=== PATIENT | male | born 1950 | race African-American/Black ===

== ENCOUNTER 2018-08-13 20:30 | Outpatient (CLI) | payer MEDICARE | END 2018-08-13 20:31 | disposition home or self-care (01) | LOC: SLEEPLAB 20:30 | PROVIDERS: ATTEND Family Medicine | DX: G47.33 Obstructive sleep apnea (adult) (pediatric) (principal); R06.83 Snoring; R35.1 Nocturia; I10 Essential (primary) hypertension; I21.9 Acute myocardial infarction, unspecified; G47.00 Insomnia, unspecified; G47.10 Hypersomnia, unspecified; E66.9 Obesity, unspecified; Z68.36 Body mass index [BMI] 36.0-36.9, adult | CPT/HCPCS: 95811 ==

== ENCOUNTER 2018-09-01 09:10 | Outpatient (CLI) | payer MEDICARE ==
--- NOTE | 2018-09-01 10:09 | ULT ---
BILATERAL RENAL ULTRASOUND: HISTORY: History of urinary tract infection. BPH. TECHNIQUE: Multiplanar, fernandez scale, and color Doppler images were obtained in a renal ultrasound. FINDINGS: There are anechoic cysts in the right kidney. The largest measures 5.9 cm in size. This large cyst contains a simple septation without significant thickening. There are 2 cysts in the right kidney. No cysts are seen in the left kidney. Both kidneys are normal in echogenicity without hydronephrosis or shadowing calculi and measure 13.4 and 11.8 cm in length on the right and left, respectively. Limited visualization of the urinary bladder is unremarkable. Both ureteral jets were visualized. IMPRESSION: Right renal cysts. POS: [facility]
== END 2018-09-01 09:11 | disposition home or self-care (01) ==
LOC: BICULT 09:10
PROVIDERS: ATTEND Urology
DX: Z12.5 Encounter for screening for malignant neoplasm of prostate (principal); N40.1 Benign prostatic hyperplasia with lower urinary tract symptoms; N52.9 Male erectile dysfunction, unspecified; N28.9 Disorder of kidney and ureter, unspecified; N28.1 Cyst of kidney, acquired; Z87.440 Personal history of urinary (tract) infections
CPT/HCPCS: 76770

== ENCOUNTER 2018-12-19 09:21 | Outpatient (CLI) | payer MEDICARE ==
--- NOTE | 2018-12-19 11:18 | ULT ---
ABDOMINAL ULTRASOUND: Date: 12/19/18 PROVIDED CLINICAL HISTORY: Abdominal bloating. FINDINGS: Comparison made with the renal ultrasound dated 09/01/18. The visualized abdominal aorta is nonaneurysmal. Visualized IVC appears normal. The pancreas is obscu red. The liver demonstrates no evidence for mass or intrahepatic biliary ductal dilatation. The common sully t is not dilated. Gallbladder demonstrates no stones, wall thickening, or pericholecystic fluid. Right and left kidneys demonstrate no evidence for hydronephrosis or solid mass. Septated right renal cyst is redemonstrated, appearing sonographically similar to the prior study. The spleen is not enlarged and demonstrates no focal abnormality. IMPRESSION: No evidence for an acute process. POS: [facility]
== END 2018-12-19 09:22 | disposition home or self-care (01) ==
LOC: ULT 09:21
PROVIDERS: ATTEND Family Medicine
DX: R14.0 Abdominal distension (gaseous) (principal)
CPT/HCPCS: 76700

== ENCOUNTER 2020-08-03 13:04 | Observation (INO) | payer MEDICARE ==
[2020-08-03 14:12] LABS: #Eosinphils 0.1 thou/uL (0.0-0.7); #Lymphocytes 1.3 thou/uL (1.20-3.40); #Monocytes 0.5 thou/uL (0.11-0.59); #Neutrophils 4.3 thou/uL (1.40-6.50); %Basophils 0.7 % (0.0-1.0); %Eosinophils 1.1 % (0.0-10.0); %Lymphocytes 21.4 % (21.0-51.0); %Monocytes 7.8 % (0.0-10.0); %Neutrophils 69.1 % (42.0-75.0); Hemoglobin 13.5 g/dL (14.0-18.0); Mean Corpuscular Hemoglobin 28.6 pg (27.0-31.0); Mean Corpuscular Volume 86.8 fL (78.0-98.0); Mean Platelet Volume 7.9 fL (7.4-10.4); Platelet Count 174 thou/uL (130-400); RBC Distribution Width 12.6 % (11.5-14.5); Red Blood Cell (RBC) Count 4.72 mill/uL (4.70-6.10); White Blood Cell (WBC) Count 6.3 thou/uL (4.8-10.8)
[2020-08-03 14:43] LABS: ALT (SGPT) 24 U/L (8-55); AST (SGOT) 17 U/L (5-34); Albumin 4.3 g/dL (3.4-4.8); Alkaline Phosphatase 83 U/L (40-110); Anion Gap 13 mmol/L (10-20); BUN (Urea Nitrogen) 15 mg/dL (8.4-25.7); Bilirubin, Total 0.3 mg/dL (0.2-1.2); CK (CPK) 92 U/L (30-200); Calc. Creatinine Clearance 0 mL/min (70-130); Calcium 9.6 mg/dL (7.8-10.44); Carbon Dioxide 30 mmol/L (23-31); Chloride 103 mmol/L (98-107); Globulin 3.4 g/dL (2.4-3.5); Glucose 108 mg/dL (80-115); Potassium 4.3 mmol/L (3.5-5.1); Protein, Total 7.7 g/dL (5.8-8.1); Sodium 142 mmol/L (136-145)
[2020-08-03 15:22] LABS: Bacteria/HPF 1+ HPF (None Seen); Bilirubin Negative (Negative); Blood, Urine Negative (Negative); Clarity Turbid (Clear); Glucose, Urine (Dipstick) Normal (Negative); Ketone, Urine Negative (Negative); Leukocyte 75 Leu/uL (Negative); Nitrite Negative (Negative); Protein, Urine (Dipstick) Negative (Neg-Trace); RBC/HPF 0-3 HPF (0-3); Specific Gravity, Urine 1.008 (1.002-1.036); Squamous Epithelial None Seen HPF (0-3); Urobilinogen Normal mg/dL (Less than 2); pH, Urine 6.5 (5.0-9.0)
[2020-08-03] MEDS ORDERED: Aspirin 325 MG TAB ONE (16:20)
[2020-08-03] MEDS ORDERED: Meclizine HCl 25 MG TAB ONE (16:20)
[2020-08-03] MEDS ORDERED: hydrALAZINE 20 MG/ML VIAL SLOW IVP PRN (18:27)
[2020-08-03] MEDS ORDERED: Acetaminophen 325 MG TAB PO PRN (18:27)
[2020-08-03] MEDS ORDERED: Labetalol HCl 100 MG/20 ML VIAL SLOW IVP PRN (18:27)
[2020-08-03] MEDS ORDERED: Ondansetron ODT 4 MG TAB PO PRN (18:27)
[2020-08-03 18:38] LABS: Troponin I 0.012 ng/mL (< 0.028)
[2020-08-03] MEDS ORDERED: Meclizine HCl 25 MG TAB PO PRN (19:49)
[2020-08-03 20:48] VITALS: BMI 34.1
[2020-08-03] MEDS ORDERED: Atorvastatin Calcium 40 MG TAB PO SCH (21:00)
[2020-08-03 21:46] LABS: Troponin I Less than 0.010 ng/mL (< 0.028)
[2020-08-04 05:26] LABS: Anion Gap 14 mmol/L (10-20); BUN (Urea Nitrogen) 17 mg/dL (8.4-25.7); Calc. Creatinine Clearance 73 mL/min (70-130); Calcium 8.4 mg/dL (7.8-10.44); Carbon Dioxide 24 mmol/L (23-31); Cardiac Risk 2.6 (Less than 4.5); Chloride 106 mmol/L (98-107); Cholesterol 143 mg/dl (< 200 Desired); Glucose 83 mg/dL (80-115); HDL Cholesterol 54 mg/dL (>60 Neg Risk); LDL Cholesterol, Calculated 62 mg/dL; Potassium 3.7 mmol/L (3.5-5.1); Sodium 140 mmol/L (136-145); Triglycerides 137 mg/dL (Less than 150)
[2020-08-04] MEDS ORDERED: Lorazepam 2 MG/ML VIAL SLOW IVP SCH (08:15)
[2020-08-04] MEDS ORDERED: Carvedilol 25 MG TAB PO SCH ×2 (09:00)
[2020-08-04] MEDS ORDERED: Amlodipine 10 MG TAB PO SCH (09:00)
[2020-08-04] MEDS ORDERED: Clopidogrel Bisulfate 75 MG TAB PO SCH ×2 (09:00)
[2020-08-04] MEDS ORDERED: Aspirin 81 mg Enteric Coated Tablet PO SCH (09:00)
[2020-08-04] MEDS ORDERED: Aspirin 325 mg Enteric Coated Tablet PO SCH (09:00)
[2020-08-04] MEDS ORDERED: Non-Formulary Item 1 EACH (Lisinopril [Lisinopril] 40 MG Tablet) PO SCH (09:00)
[2020-08-04] MEDS ORDERED: DULoxetine 30 MG CAP PO SCH ×2 (09:00)
[2020-08-04] MEDS ORDERED: hydrALAZINE 25 MG TAB PO SCH (09:00)
[2020-08-04] MEDS ORDERED: Enoxaparin Sodium 40 MG/0.4 ML SYRINGE SC SCH (09:00)
[2020-08-04] MEDS ORDERED: Lisinopril 20 MG TAB PO SCH (09:00)
[2020-08-04] MEDS ORDERED: Non-Formulary Item 1 EACH (Hydralazine Hcl [Hydralazine Hcl] 50 MG Tablet) PO SCH (09:00)
[2020-08-04] MEDS ORDERED: Furosemide 20 MG TAB PO SCH ×3 (09:00→21:00)
[2020-08-04 12:06] VITALS: TEMP 99
[2020-08-04 14:55] VITALS: BP 124/71
== END 2020-08-04 16:02 | disposition home or self-care (01) ==
LOC: ERS 13:04 → 2SE 17:23
PROVIDERS: ADMIT Emergency Medicine; ATTEND Family Medicine
DX: I95.1 Orthostatic hypotension (principal); R56.9 Unspecified convulsions; I12.9 Hypertensive chronic kidney disease with stage 1 through stage 4 chronic kidney disease, or unspecified chronic kidney disease; N18.30 Chronic kidney disease, stage 3 unspecified; N40.0 Benign prostatic hyperplasia without lower urinary tract symptoms; I73.9 Peripheral vascular disease, unspecified; I69.392 Facial weakness following cerebral infarction; I69.398 Other sequelae of cerebral infarction; R47.89 Other speech disturbances; Z79.02 Long term (current) use of antithrombotics/antiplatelets; Z79.899 Other long term (current) drug therapy
CPT/HCPCS: 70450; 70551; 71045; 80048; 80053; 80061; 82550; 84484 ×2; 85025; 87077; 87086; 87186; 93005; 96372; 96374; 97139 ×2; 99285; G0378 ×3; 36415; 81003; 81015; J1650; J2060

== ENCOUNTER 2020-08-13 08:33 | Observation (INO) | payer MEDICARE ==
[2020-08-13 09:00] LABS: #Eosinphils 0.1 thou/uL (0.0-0.7); #Lymphocytes 2.2 thou/uL (1.20-3.40); #Monocytes 0.6 thou/uL (0.11-0.59); #Neutrophils 3.2 thou/uL (1.40-6.50); %Basophils 0.7 % (0.0-1.0); %Eosinophils 2.1 % (0.0-10.0); %Lymphocytes 35.5 % (21.0-51.0); %Monocytes 9.8 % (0.0-10.0); Mean Corpuscular HGB CONC 32.3 g/dL (32.0-36.0); Mean Corpuscular Hemoglobin 28.2 pg (27.0-31.0); Platelet Count 173 thou/uL (130-400); RBC Distribution Width 12.8 % (11.5-14.5); Red Blood Cell (RBC) Count 4.96 mill/uL (4.70-6.10); White Blood Cell (WBC) Count 6.2 thou/uL (4.8-10.8)
[2020-08-13 09:20] LABS: ALT (SGPT) 24 U/L (8-55); AST (SGOT) 16 U/L (5-34); Albumin 4.3 g/dL (3.4-4.8); Alkaline Phosphatase 89 U/L (40-110); Anion Gap 11 mmol/L (10-20); BUN (Urea Nitrogen) 13 mg/dL (8.4-25.7); Bilirubin, Total 0.3 mg/dL (0.2-1.2); Calc. Creatinine Clearance 0 mL/min (70-130); Calcium 9.4 mg/dL (7.8-10.44); Carbon Dioxide 29 mmol/L (23-31); Chloride 103 mmol/L (98-107); Globulin 3.4 g/dL (2.4-3.5); Glucose 101 mg/dL (80-115); Lipase 77 U/L (8-78); Potassium 3.8 mmol/L (3.5-5.1); Protein, Total 7.7 g/dL (5.8-8.1); Sodium 139 mmol/L (136-145)
[2020-08-13 10:23] LABS: Bilirubin Negative (Negative); Blood, Urine Negative (Negative); Clarity Clear (Clear); Glucose, Urine (Dipstick) Normal (Negative); Ketone, Urine Negative (Negative); Leukocyte 250 Leu/uL (Negative); Nitrite Negative (Negative); Protein, Urine (Dipstick) 10 mg/dL (Neg-Trace); RBC/HPF 0-3 HPF (0-3); Specific Gravity, Urine 1.008 (1.002-1.036); Squamous Epithelial 0-3 HPF (0-3); Urobilinogen Normal mg/dL (Less than 2); pH, Urine 7.5 (5.0-9.0)
[2020-08-13] MEDS ORDERED: Ketorolac Tromethamine 30 MG/ML VIAL ONE (10:23)
[2020-08-13] MEDS ORDERED: Famotidine/PF 20 mg/2ml Vial ONE (10:23)
[2020-08-13] MEDS ORDERED: Lidocaine Viscous Sol 2% 15 ml UD Cup ONE (10:23)
[2020-08-13] MEDS ORDERED: Mag-Al 1200 mg/1200 mg/30 ML UDCUP ONE (10:23)
[2020-08-13] MEDS ORDERED: Aspirin Chewable 81 MG TAB ONE (10:23)
[2020-08-13 10:24] LABS: Bacteria/HPF 1+ HPF (None Seen)
[2020-08-13] MEDS ORDERED: Acetaminophen 325 MG TAB PO PRN (11:15)
[2020-08-13] MEDS ORDERED: Ondansetron PF 4 MG/2 ML Vial IVP PRN (11:15)
[2020-08-13] MEDS ORDERED: Ondansetron ODT 4 MG TAB PO PRN (11:15)
[2020-08-13] MEDS ORDERED: Nitroglycerin 0.4 MG TAB (25 Tab Bottle) SL PRN (11:15)
[2020-08-13] MEDS ORDERED: Lidocaine 2% Viscous Solution 10 ML, Aluminum & Magnesium Hydroxide 30 ML SSW SCH (11:30)
[2020-08-13] MEDS ORDERED: Meclizine HCl 25 MG TAB PO PRN (11:36)
[2020-08-13 12:02] LABS: Troponin I 0.016 ng/mL (< 0.028)
[2020-08-13] MEDS ORDERED: ADENOSINE 60 MG/20 ML VIAL ONE (12:42)
[2020-08-13 12:43] VITALS: BMI 35.2
[2020-08-13 16:01] VITALS: BP 144/75; TEMP 98.3
[2020-08-13] MEDS ORDERED: Famotidine 20 MG TAB PO SCH (21:00)
[2020-08-13] MEDS ORDERED: Carvedilol 25 MG TAB PO SCH (21:00)
[2020-08-13] MEDS ORDERED: hydrALAZINE 25 MG TAB PO SCH (21:00)
[2020-08-13] MEDS ORDERED: Atorvastatin Calcium 40 MG TAB PO SCH (21:00)
[2020-08-14 01:41] LABS: SARS-CoV-2 PCR by NAA Not Detected (NotDetected)
[2020-08-14] MEDS ORDERED: Clopidogrel Bisulfate 75 MG TAB PO SCH (09:00)
[2020-08-14] MEDS ORDERED: Aspirin Chewable 81 MG TAB PO SCH (09:00)
[2020-08-14] MEDS ORDERED: DULoxetine 30 MG CAP PO SCH (09:00)
[2020-08-14] MEDS ORDERED: Enoxaparin Sodium 40 MG/0.4 ML SYRINGE SC SCH (09:00)
[2020-08-14] MEDS ORDERED: Furosemide 20 MG TAB PO SCH (09:00)
[2020-08-14] MEDS ORDERED: Amlodipine 10 MG TAB PO SCH (09:00)
[2020-08-14] MEDS ORDERED: Lisinopril 20 MG TAB PO SCH (09:00)
== END 2020-08-13 18:31 | disposition home or self-care (01) ==
LOC: ERS 08:33 → 2SW 10:45
PROVIDERS: ADMIT Family Medicine; ATTEND Family Medicine
DX: R07.89 Other chest pain (principal); R06.02 Shortness of breath; I16.0 Hypertensive urgency; I12.9 Hypertensive chronic kidney disease with stage 1 through stage 4 chronic kidney disease, or unspecified chronic kidney disease; N18.30 Chronic kidney disease, stage 3 unspecified; I69.328 Other speech and language deficits following cerebral infarction; I69.354 Hemiplegia and hemiparesis following cerebral infarction affecting left non-dominant side; R73.03 Prediabetes; G47.33 Obstructive sleep apnea (adult) (pediatric); R56.9 Unspecified convulsions; E66.9 Obesity, unspecified; Z68.35 Body mass index [BMI] 35.0-35.9, adult; Z79.02 Long term (current) use of antithrombotics/antiplatelets; Z79.899 Other long term (current) drug therapy; Z20.822 Contact with and (suspected) exposure to COVID-19
CPT/HCPCS: 71045; 78452; 80053; 83036; 83690; 84484 ×2; 85025; 93005; 93017; 96374; 96375; 99285; A9500; U0003; U0005; 36415; 81003; 81015; 87635; G0378; J0153; J1885; S0028

== ENCOUNTER 2020-09-02 13:34 | Emergency (ER) | payer MEDICARE ==
[~2020-09-02 13:34] MED LIST: Iopamidol-370 76% 500 ML 1 ML ONE
[2020-09-02 14:12] LABS: #Eosinphils 0.1 thou/uL (0.0-0.7); #Lymphocytes 1.6 thou/uL (1.20-3.40); #Monocytes 0.4 thou/uL (0.11-0.59); #Neutrophils 3.2 thou/uL (1.40-6.50); %Basophils 0.2 % (0.0-1.0); %Eosinophils 1.4 % (0.0-10.0); %Lymphocytes 29.8 % (21.0-51.0); %Monocytes 8.4 % (0.0-10.0); %Neutrophils 60.3 % (42.0-75.0); Hemoglobin 13.4 g/dL (14.0-18.0); Mean Corpuscular HGB CONC 31.7 g/dL (32.0-36.0); Mean Corpuscular Hemoglobin 27.6 pg (27.0-31.0); Mean Corpuscular Volume 87.2 fL (78.0-98.0); Mean Platelet Volume 7.9 fL (7.4-10.4); Platelet Count 200 thou/uL (130-400); RBC Distribution Width 12.6 % (11.5-14.5); Red Blood Cell (RBC) Count 4.85 mill/uL (4.70-6.10); White Blood Cell (WBC) Count 5.2 thou/uL (4.8-10.8)
[2020-09-02 14:23] LABS: ALT (SGPT) 23 U/L (8-55); AST (SGOT) 17 U/L (5-34); Albumin 4.3 g/dL (3.4-4.8); Alkaline Phosphatase 95 U/L (40-110); Anion Gap 14 mmol/L (10-20); BUN (Urea Nitrogen) 17 mg/dL (8.4-25.7); Bilirubin, Total 0.3 mg/dL (0.2-1.2); Calc. Creatinine Clearance 0 mL/min (70-130); Calcium 10.1 mg/dL (7.8-10.44); Carbon Dioxide 25 mmol/L (23-31); Chloride 104 mmol/L (98-107); Globulin 3.3 g/dL (2.4-3.5); Glucose 122 mg/dL (80-115); Lipase 71 U/L (8-78); Potassium 3.6 mmol/L (3.5-5.1); Protein, Total 7.6 g/dL (5.8-8.1); Sodium 139 mmol/L (136-145)
[2020-09-02 17:22] LABS: Troponin I 0.017 ng/mL (< 0.028)
== END 2020-09-02 17:53 | disposition home or self-care (01) ==
LOC: ERS 13:34
DX: R07.89 Other chest pain (principal); I10 Essential (primary) hypertension; Z79.899 Other long term (current) drug therapy
CPT/HCPCS: 36415; 71045; 74177; 80053; 83690; 84484; 85025; 93005; 94760; Q9967

== ENCOUNTER 2020-09-26 10:06 | Emergency (ER) | payer MEDICARE ==
[2020-09-26] MEDS ORDERED: Dexamethasone 10 MG/ML VIAL ONE (12:06)
[2020-09-26] MEDS ORDERED: Ketorolac Tromethamine 30 MG/ML VIAL ONE (12:06)
== END 2020-09-26 12:54 | disposition home or self-care (01) ==
LOC: ERS 10:06
DX: M17.12 Unilateral primary osteoarthritis, left knee (principal); Z79.899 Other long term (current) drug therapy
CPT/HCPCS: 96372; J1100; J1885

== ENCOUNTER 2021-08-31 08:21 | Outpatient (CLI) | payer MEDICARE ==
[2021-08-31] MEDS ORDERED: Iopamidol-370 76% 500 ML 1 ML ONE (14:22)
== END 2021-08-31 08:22 | disposition home or self-care (01) ==
LOC: BICCT 08:21
PROVIDERS: ATTEND Student in an Organized Health Care Education/Training Program
DX: R10.31 Right lower quadrant pain (principal)
CPT/HCPCS: 74177; 82565; Q9967

== ENCOUNTER 2023-01-14 14:31 | Emergency (ER) | payer OTHER ==
[2023-01-14] MEDS ORDERED: Ibuprofen 200 MG TAB ONE (14:58)
[2023-01-14] MEDS ORDERED: Cyclobenzaprine 10 MG TAB ONE (14:58)
[2023-01-14] MEDS ORDERED: predniSONE 20 MG TAB ONE (14:58)
== END 2023-01-14 16:55 | disposition home or self-care (01) ==
LOC: ERS 14:31
DX: M43.6 Torticollis (principal)
CPT/HCPCS: 71045; J7512

== ENCOUNTER 2023-06-24 18:23 | Observation (INO) | payer OTHER ==
[2023-06-24 19:23] LABS: #Eosinphils 0.1 thou/uL (0.0-0.7); #Monocytes 0.6 thou/uL (0.11-0.59); %Basophils 0.2 % (0.0-1.0); %Eosinophils 1.6 % (0.0-10.0); %Lymphocytes 23.5 % (21.0-51.0); %Neutrophils 65.5 % (42.0-75.0); Hematocrit 39.8 % (42.0-52.0); Hemoglobin 12.3 g/dL (14.0-18.0); Mean Corpuscular HGB CONC 30.9 g/dL (32.0-36.0); Mean Corpuscular Volume 87.3 fl (78.0-98.0); Mean Platelet Volume 10.3 fL (7.4-10.4); Platelet Count 176 10x3/uL (130-400); RBC Distribution Width 13.4 % (11.5-14.5); Red Blood Cell (RBC) Count 4.56 mill/uL (4.70-6.10); White Blood Cell (WBC) Count 6.1 10x3/uL (4.8-10.8)
[2023-06-24 19:47] LABS: ALT (SGPT) 20 U/L (8-55); AST (SGOT) 17 U/L (5-34); Albumin 4.2 g/dL (3.4-4.8); Alkaline Phosphatase 65 U/L (40-110); Anion Gap 13 mmol/L (10-20); BUN (Urea Nitrogen) 36 mg/dL (8.4-25.7); Bilirubin, Total 0.2 mg/dL (0.2-1.2); Calc. Creatinine Clearance 0 mL/min (70-130); Calcium 9.4 mg/dL (7.8-10.44); Carbon Dioxide 27 mmol/L (23-31); Chloride 104 mmol/L (98-107); Estimated GFR 28; Globulin 3.1 g/dL (2.4-3.5); Glucose 103 mg/dL (83-110); Lipase 121 U/L (8-78); Potassium 4.5 mmol/L (3.5-5.1); Protein, Total 7.3 g/dL (5.8-8.1); Sodium 139 mmol/L (136-145)
[2023-06-24 19:51] LABS: Troponin I Less than 0.010 ng/mL (< 0.028)
[2023-06-24] MEDS ORDERED: Aspirin Chewable 81 MG TAB ONE (19:56)
[2023-06-24] MEDS ORDERED: Nitroglycerin 0.4 MG TAB (25 Tab Bottle) ONE (19:57)
[2023-06-24] MEDS ORDERED: Acetaminophen 325 MG TAB PO PRN (21:00)
[2023-06-24 21:32] LABS: Hemoglobin A1c 5.9 % (4.0-6.0)
[2023-06-24 21:35] LABS: Cardiac Risk 2.7 (Less than 4.5)
[2023-06-24] MEDS ORDERED: Phenytoin Extended Release 100 MG CAP ONE (22:28)
[2023-06-24] MEDS ORDERED: Atorvastatin Calcium 40 MG TAB ONE (22:28)
[2023-06-24] MEDS: Lactated Ringer's 1,000 ML IV SCH (22:39)
[2023-06-24] MEDS: Phenytoin Extended Release 100 MG CAP PO SCH (22:40)
[2023-06-24] MEDS: Atorvastatin Calcium 40 MG TAB PO SCH (22:40)
[2023-06-25 06:36] LABS: #Eosinphils 0.1 thou/uL (0.0-0.7); #Monocytes 0.5 thou/uL (0.11-0.59); #Neutrophils 2.1 thou/uL (1.40-6.50); %Basophils 0.7 % (0.0-1.0); %Eosinophils 2.9 % (0.0-10.0); %Lymphocytes 38.7 % (21.0-51.0); %Monocytes 11.4 % (0.0-10.0); %Neutrophils 46.1 % (42.0-75.0); Hematocrit 36.9 % (42.0-52.0); Hemoglobin 11.7 g/dL (14.0-18.0); Mean Corpuscular HGB CONC 31.7 g/dL (32.0-36.0); Mean Corpuscular Hemoglobin 26.8 pg (27.0-31.0); Mean Platelet Volume 9.8 fL (7.4-10.4); Platelet Count 158 10x3/uL (130-400); RBC Distribution Width 13.2 % (11.5-14.5); Red Blood Cell (RBC) Count 4.36 mill/uL (4.70-6.10); White Blood Cell (WBC) Count 4.6 10x3/uL (4.8-10.8)
[2023-06-25 06:42] LABS: Mean Corpuscular Volume 84.6 fl (78.0-98.0)
[2023-06-25 07:02] LABS: Anion Gap 11 mmol/L (10-20); Calcium 8.9 mg/dL (7.8-10.44); Carbon Dioxide 25 mmol/L (23-31); Chloride 108 mmol/L (98-107); Glucose 69 mg/dL (83-110); Potassium 3.9 mmol/L (3.5-5.1); Sodium 140 mmol/L (136-145)
[2023-06-25 07:12] LABS: BUN (Urea Nitrogen) 30 mg/dL (8.4-25.7); Calc. Creatinine Clearance 53 mL/min (70-130); Estimated GFR 42
[2023-06-25] MEDS ORDERED: Amlodipine 5 MG TAB ONE (08:49)
[2023-06-25] MEDS ORDERED: hydrALAZINE 25 MG TAB ONE (08:49)
[2023-06-25] MEDS ORDERED: Aspirin Chewable 81 MG TAB ONE (08:49)
[2023-06-25] MEDS ORDERED: DULoxetine 60 MG CAP ONE (08:50)
[2023-06-25] MEDS ORDERED: Enoxaparin 30 MG (0.3 mL) SYRINGE ONE (08:50)
[2023-06-25] MEDS ORDERED: Lisinopril 20 MG TAB ONE (08:50)
[2023-06-25] MEDS ORDERED: Clopidogrel Bisulfate 75 MG TAB ONE (08:55)
[2023-06-25] MEDS ORDERED: Clopidogrel Bisulfate 300 MG TAB ONE (08:55)
[2023-06-25] MEDS: Amlodipine 10 MG TAB PO SCH (09:04)
[2023-06-25] MEDS: hydrALAZINE 25 MG TAB PO SCH (09:05)
[2023-06-25] MEDS: DULoxetine 30 MG CAP PO SCH (09:05)
[2023-06-25] MEDS: Clopidogrel Bisulfate 75 MG TAB PO SCH (09:05)
[2023-06-25] MEDS: Aspirin Chewable 81 MG TAB PO SCH (09:05)
[2023-06-25] MEDS: Enoxaparin 30 MG (0.3 mL) SYRINGE SC SCH (09:05)
[2023-06-25] MEDS: Lisinopril 20 MG TAB PO SCH (09:06)
[2023-06-25] MEDS: Dextrose 5%-Lactated Ringers 1,000 ML IV SCH (09:48)
[2023-06-25] MEDS: Cholecalciferol (Vitamin D3) 400 UNITS TAB PO SCH (09:48)
[2023-06-25] MEDS ORDERED: hydrALAZINE 20 MG/ML VIAL SLOW IVP SCH (12:00)
[2023-06-25] MEDS ORDERED: Regadenoson 0.4 MG/5 ML SYRINGE ONE (12:40)
[2023-06-25 15:02] VITALS: TEMP 97.8
[2023-06-25 15:03] VITALS: BMI 29.1
[2023-06-25] MEDS: Carvedilol 25 MG TAB PO SCH (15:57)
[2023-06-25 18:13] VITALS: BP 148/62
[2023-06-26] MEDS ORDERED: Enoxaparin 40 MG (0.4 mL) SYRINGE SC SCH (09:00)
== END 2023-06-25 19:06 | disposition home or self-care (01) ==
LOC: ERS 18:23 → ERHOLD 20:49 → 2SW 06-25 14:58
PROVIDERS: ADMIT Emergency Medicine; ATTEND Emergency Medicine
DX: I20.89 Other forms of angina pectoris (principal); I12.9 Hypertensive chronic kidney disease with stage 1 through stage 4 chronic kidney disease, or unspecified chronic kidney disease; N18.32 Chronic kidney disease, stage 3b; N17.9 Acute kidney failure, unspecified; E78.5 Hyperlipidemia, unspecified; F32.A Depression, unspecified; F43.10 Post-traumatic stress disorder, unspecified; G47.33 Obstructive sleep apnea (adult) (pediatric); N40.0 Benign prostatic hyperplasia without lower urinary tract symptoms; F01.50 Vascular dementia, unspecified severity, without behavioral disturbance, psychotic disturbance, mood disturbance, and anxiety; Z79.82 Long term (current) use of aspirin; Z79.899 Other long term (current) drug therapy; Z86.73 Personal history of transient ischemic attack (TIA), and cerebral infarction without residual deficits
CPT/HCPCS: 71045; 78452; 80048; 80061; 83036; 83690; 84484 ×2; 85025; 93005; 93017; 96372; 99285; A9502; G0378 ×2; J2785; 36415; 80053; 84443; J1650; J7120

== ENCOUNTER 2023-07-03 07:38 | Emergency (ER) | payer OTHER ==
[2023-07-03 08:50] LABS: Bacteria/HPF 4+ HPF (None Seen); Bilirubin Negative (Negative); Blood, Urine Negative (Negative); CAUTI Indications for Culture Alt mental st,lethar; Clarity Clear (Clear); Glucose, Urine (Dipstick) Normal (Negative); Ketone, Urine Negative (Negative); Leukocyte 75 Leu/uL (Negative); Nitrite Negative (Negative); Protein, Urine (Dipstick) Negative (Neg-Trace); RBC/HPF 0-3 HPF (0-3); Squamous Epithelial 0-3 HPF (0-3); Urobilinogen Normal mg/dL (Less than 2); pH, Urine 7.5 (5.0-9.0)
[2023-07-03 08:53] LABS: Amphetamine Not Detected (NotDetected); Barbiturates Screen Detected (NotDetected); Benzodiazepine Screen Not Detected (NotDetected); Cocaine Metabolite Screen Not Detected (NotDetected); Methadone Not Detected (NotDetected); Methamphetamine Not Detected (NotDetected); Opiate Screen Not Detected (NotDetected); Oxycodone Screen Not Detected (NotDetected); Phencyclidine (PCP) Not Detected (NotDetected); THC/Cannabinoid Screen Not Detected (NotDetected); Tricyclic Screen Not Detected (NotDetected)
[2023-07-03 08:57] LABS: Urine Culture Reflex Yes Yes
[2023-07-03 08:57] LABS: #Eosinphils 0.2 thou/uL (0.0-0.7); #Monocytes 0.5 thou/uL (0.11-0.59); #Neutrophils 2.5 thou/uL (1.40-6.50); %Basophils 0.4 % (0.0-1.0); %Eosinophils 3.6 % (0.0-10.0); %Lymphocytes 31.3 % (21.0-51.0); %Monocytes 10.6 % (0.0-10.0); %Neutrophils 53.9 % (42.0-75.0); Hematocrit 38.4 % (42.0-52.0); Hemoglobin 12.1 g/dL (14.0-18.0); Mean Corpuscular HGB CONC 31.5 g/dL (32.0-36.0); Mean Corpuscular Hemoglobin 27.2 pg (27.0-31.0); Mean Corpuscular Volume 86.3 fl (78.0-98.0); Mean Platelet Volume 10.4 fL (7.4-10.4); Platelet Count 146 10x3/uL (130-400); RBC Distribution Width 13.7 % (11.5-14.5); Red Blood Cell (RBC) Count 4.45 mill/uL (4.70-6.10); White Blood Cell (WBC) Count 4.7 10x3/uL (4.8-10.8)
[2023-07-03 09:27] LABS: Troponin I Less than 0.010 ng/mL (< 0.028)
[2023-07-03] MEDS ORDERED: hydrALAZINE 25 MG TAB ONE (09:49)
[2023-07-03] MEDS ORDERED: Sodium Chloride 0.9% 100 ML ONE (09:49)
[2023-07-03] MEDS ORDERED: cefTRIAXone (ROCEPHIN) 2 GM VIAL ONE (09:49)
[2023-07-03] MEDS ORDERED: Carvedilol 25 MG TAB ONE (09:49)
[2023-07-03] MEDS ORDERED: Amlodipine 5 MG TAB ONE (09:49)
[2023-07-03 09:57] LABS: Acetaminophen Less than 10 mcg/mL (10.0-30.0); Alcohol Less than 10.0 mg/dL (Less than 10)
[2023-07-03 09:58] LABS: Salicylate Less than 8.0 mg/dL (15.0-30.0)
[2023-07-03 09:59] LABS: ALT (SGPT) 28 U/L (8-55); AST (SGOT) 21 U/L (5-34); Albumin 4.3 g/dL (3.4-4.8); Alkaline Phosphatase 62 U/L (40-110); Anion Gap 12 mmol/L (10-20); BUN (Urea Nitrogen) 38 mg/dL (8.4-25.7); Bilirubin, Total 0.2 mg/dL (0.2-1.2); Calc. Creatinine Clearance 0 mL/min (70-130); Calcium 9.3 mg/dL (7.6-10.4); Carbon Dioxide 25 mmol/L (23-31); Chloride 106 mmol/L (98-107); Estimated GFR 39; Glucose 87 mg/dL (83-110); Potassium 4.2 mmol/L (3.5-5.1); Protein, Total 7.3 g/dL (5.8-8.1); Sodium 139 mmol/L (136-145)
[2023-07-03] MEDS ORDERED: Iopamidol-370 76% 500 ML MDV (1 ML CHARGE) ONE (10:19)
== END 2023-07-03 11:41 | disposition home or self-care (01) ==
LOC: ERS 07:38
DX: N39.0 Urinary tract infection, site not specified (principal); N18.9 Chronic kidney disease, unspecified; N13.30 Unspecified hydronephrosis; I10 Essential (primary) hypertension
CPT/HCPCS: 36416; 70450; 71045; 74177; 80053; 80306; 80307; 81001; 82140; 83605; 83880; 84443; 84484; 85025; 87040; 87086; 93005; 96365; J0696; J3490; Q9967